=== PATIENT | female | born 2005 | race Two or more races ===

== ENCOUNTER 2023-05-14 16:42 | Outpatient (OUT) | payer OTHER, SELFPAY ==
[2023-05-16 05:07] LABS: Hepatitis B Surf Ab Quant 174.8 mIU/mL (Immunity>9.9)
== END 2023-05-14 16:43 | disposition home or self-care (01) ==
LOC: LAB 16:48
PROVIDERS: PCP Nurse Practitioner Family; Visit Provider Nurse Practitioner Family
DX: T14.8XXA Other injury of unspecified body region, initial encounter (principal); W50.3XXA Accidental bite by another person, initial encounter
CPT/HCPCS: 36415; 86317

== ENCOUNTER 2023-07-05 17:30 | Outpatient (OUT) | payer BC, SELFPAY ==
--- NOTE | 2023-07-05 | XR_ITS ---
[facility] [id number] Patient Name: JAYNE HUMPHRIES MRN: [id number] date: 2005 Sex: F Assigned Patient Location: [facility] Current Patient Location: Accession/Order Number: [id number] Exam Date: 07/05/2023 17:50 Report Date: 07/06/2023 06:59 At the request of: CHINO OTTO Procedure: XR thoracic spine 3V EXAMINATION: XR thoracic spine 3V, XR cervical spine 5V HISTORY: Thorasic pain M54.6 COMPARISON: No relevant comparison available. FINDINGS: BONES: Normal alignment of the cervical and thoracic vertebral bodies with no acute fracture or spondylolisthesis. DISC SPACES: Normal. No significant disc height narrowing, subluxation, or endplate abnormality. PARASPINOUS: Negative. No paraspinous abnormality is seen. OTHER: Negative. XR/XR thoracic spine 3V IMPRESSION: No acute radiographic abnormality Electronically authenticated by: ANTONIO ALCANTAR Date: 07/06/2023 06:59
--- NOTE | 2023-07-05 | XR_ITS ---
[facility] [id number] Patient Name: JAYNE HUMPHRIES MRN: [id number] date: 2005 Sex: F Assigned Patient Location: [facility] Current Patient Location: Accession/Order Number: [id number] Exam Date: 07/05/2023 17:50 Report Date: 07/06/2023 06:59 At the request of: CHINO OTTO Procedure: XR cervical spine 5V EXAMINATION: XR thoracic spine 3V, XR cervical spine 5V HISTORY: Thorasic pain M54.6 COMPARISON: No relevant comparison available. FINDINGS: BONES: Normal alignment of the cervical and thoracic vertebral bodies with no acute fracture or spondylolisthesis. DISC SPACES: Normal. No significant disc height narrowing, subluxation, or endplate abnormality. PARASPINOUS: Negative. No paraspinous abnormality is seen. OTHER: Negative. XR/XR cervical spine 5V IMPRESSION: No acute radiographic abnormality Electronically authenticated by: ANTONIO ALCANTAR Date: 07/06/2023 06:59
== END 2023-07-05 17:31 | disposition home or self-care (01) ==
LOC: RAD 17:32
PROVIDERS: PCP Nurse Practitioner Family; Visit Provider Nurse Practitioner Family
DX: M54.2 Cervicalgia (principal); M54.6 Pain in thoracic spine
CPT/HCPCS: 72050; 72072

== ENCOUNTER 2024-10-03 22:25 | Emergency (ER) | payer BC, SELFPAY ==
[2024-10-03] VITALS (10 sets, daily range): BP systolic 130; BP diastolic 89; PULSE 74–109; TEMP 36.8; O2SAT 99–100; BMI 25.4
--- OUTSIDE RECORDS SUMMARY | 2024-10-03 22:36 | XMS_ITS | CCD ---
Author Organization [facility] Care Team Providers Care Cardiovascular Technologist Name Role Phone Margo Jay Primary Care Physician [phone] CHU OMER Admitting Unavailable CHU OMER Attending Unavailable CHU OMER Consulting Unavailable OLDS, MARGO Admitting Unavailable OLDS, MARGO Attending Unavailable OLDS, MARGO Primary Care Unavailable OLDS, MARGO Consulting Unavailable MISC, DR KENDRICK Admitting Unavailable MISC, DR KENDRICK Attending Unavailable OLDS, MARGO Primary Care Unavailable MISC, DR KENDRICK Consulting Unavailable OLDS, MARGO Admitting Unavailable OLDS, MARGO Attending Unavailable OLDS, MARGO Primary Care Unavailable OLDS, MARGO Admitting Unavailable OLDS, MARGO Attending Unavailable OLDS, MARGO Primary Care Unavailable OLDS, MARGO Admitting Unavailable OLDS, MARGO Attending Unavailable OLDS, MARGO Primary Care Unavailable Haley Butcher Unavailable Antonina Wahl Unavailable Cele PETER Attending Unavailable Cele PETER Attending Unavailable Misty, Margo RAMIREZ Attending Unavailable Allergies Allergy Classification Reported Allergen(s) Allergy Type Date of Onset Reaction(s) Facility (1 source) No Known Medication Allergies; Translations: [No Known Medication Allergies] Propensity to adverse reactions (disorder) [facility] Repository Medications Current Medications Medication Drug Class(es) Dates Sig (Normalized) Sig (Original) cetirizine hydrochloride 10 mg oral tablet (6 sources) Histamine-1 Receptor Antagonist Start: 01-17-2022 End: 05-17-2022 take 1 tablet by mouth once daily cetirizine 10 mg Tab 10 mg = 1 tab(s), Oral, Daily, X 30 day(s), # 30 tab(s), Refills(s) 3, [id number], cm, 01/17/22 8:25:00 EST, Height/Length Dosing, 77, kg, 01/17/22 8:25:00 EST, Weight Dosing Start Date: 01/17/22 Stop Date: 05/17/22 Status: Ordered {21 (Ethinyl Estradiol 0.035 MG / norgestimate 0.25 MG Oral Tablet) / 7 (Inert Ingredients 1 MG Oral Tablet) } Pack [Sprintec 28 Day] (7 sources) Progestin, Estrogen Start: 03-21-2022 End: 11-28-2022 Sprintec oral tablet 1 tab(s), Oral, Daily for 84 day(s), 84 tab(s), Refill(s) 2, [id number] 175.2, cm, 03/21/22 10:06:00 EST, Height/Length Dosing, 75.4, kg, 03/21/22 10:06:00 EST, Weight Dosing Start Date: 03/21/22 Stop Date: 11/28/22 Status: Ordered Start: 10-17-2021 take 1 tablet by remington th once daily Adali 0.25mg-35mcg oral tablet Refill(s) 0, 28 EA, TAKE 1 TABLET BY MOUTH EVERY DAY Start Date: 10/17/21 Status: Ordered Start: 03-15-2021 Sprintec oral tablet 1 tab(s), Oral, Daily, 28 tab(s), Refill(s) 11, [id number] 176, cm, 03/15/21 9:01:00 EST, Height/Length Dosing, 76, kg, 03/15/21 9:01:00 EST, Weight Dosing Start Date: 03/15/21 Status: Ordered take 1 tablet by remington th every twenty-four hours Adali 0.25-35 MG-MCG 1 tablet Orally Once a day Active Flonase 0.05 mg/inh nasal spray (3 sources) Start: 01-17-2022 take 1 spray(s) nasal route twice daily Flonase 0.05 mg/inh nasal spray 1 spray(s), Nasal, BID, 16 gram, Refill(s) 2, each nostril, [facility] #[id number], 176, cm, 01/17/22 8:25:00 EST, Height/Length Dosing, 77, kg, 01/17/22 8:25:00 EST, Weight Dosing Start Date: 01/17/22 Status: Ordered fluticasone propionate 0.05 mg/actuat metered dose nasal spray (9 sources) Corticosteroid Start: 01-17-2022 take 1 spray(s) nasal route twice daily Flonase 0.05 mg/inh nasal spray 1 spray(s), Nasal, BID, 16 gram, Refill(s) 2, each nostril, [facility]/pharmacy #[id number], 176, cm, 01/17/22 8:25:00 EST, Height/Length Dosing, 77, kg, 01/17/22 8:25:00 EST, Weight Dosing Start Date: 01/17/22 Status: Ordered Start: 08-22-2021 fluticasone to pical 0.05% cream 1 melodie, Topical, BID, 30 gram, Refill(s) 0 Start Date: 08/22/21 Status: Ordered Start: 08-22-2021 fluticasone to pical 0.05% cream 1 melodie, Topical, BID, 30 gram, Refill(s) 0 Start Date: 08/22/21 Status: Ordered take 1 spray(s) nasa l route once daily as needed Fluticasone Propionate 50 MCG/ACT 1 spray in each nostril Nasally Once a day PRN Not-Taking Multivitamin preparation (2 sources) Start: 04-06-2022 multivitamin S ee Instructions, Refill(s) 0, Prophylaxis Start Date: 04/06/22 Status: Ordered Completed/Discontinued Medications Medication Drug Class(es) Dates Sig (Normalized) Sig (Original) methylPREDNISolone 4 mg tab dosepak (1 source) Start: 02-03-2022 methylPREDNISolone 4 mg tab dosepak 21 EA, TAKE 6 TABLETS ON DAY 1 DIRECTED ON PACKAGE AND DECREASE BY 1 TAB EACH DAY FOR A TOTAL OF 6 DAYS, Refills(s) 0 Start Date: 02/03/22 Status: Suspended Problems Active Problems Problem Classification Problem Date Documented Date Episodic/Chronic Deficiency and other anemia (2 sources) Anemia 03-22-2022 Episodic Esophageal disorders (6 sources) Gastroesophageal reflux disease without esophagitis 03-15-2021 Chronic Other ear and sense organ disorders (1 source) Impacted cerumen; Translations: [Impacted cerumen, unspecified ear] Onset: 01-17-2022 Episodic Other nervous system disorders (1 source) Chronic pain; Translations: [Other chronic pain] Onset: 01-17-2022 Chronic Other nervous system disorders (1 source) Other chronic pain; Translations: [OTHER CHRONIC PAIN] Onset: 03-17-2022 Chronic Other non-traumatic joint disorders (8 sources) Joint pain; Translations: [Pain in unspecified joint] Onset: 08-22-2021 Episodic Other non-traumatic joint disorders (4 sources) Hip pain 01-17-2022 Episodic Other non-traumatic joint disorders (1 source) Pain in unspecified knee; Translations: [PAIN IN UNSPECIFIED KNEE] Onset: 03-17-2022 Episodic Other non-traumatic joint disorders (4 sources) Pain in unspecified hip; Translations: [PAIN IN UNSPECIFIED HIP] Onset: 03-12-2022 Episodic Other nutritional; endocrine; and metabolic disorders (6 sources) Overweight in childhood 01-25-2021 Episodic Other skin disorders (8 sources) Eruption; Translations: [Rash and other nonspecific skin eruption] Onset: 08-22-2021 Episodic Other upper respiratory disease (1 source) Allergic rhinitis; Translations: [Allergic rhinitis, unspecified] Onset: 01-17-2022 Chronic Other upper respiratory disease (2 sources) Seasonal allergy; Translations: [Other seasonal allergic rhinitis] Chronic Residual codes; unclassified (6 sources) High risk sexual behavior of adolescence 03-15-2021 Episodic Sprains and strains (1 source) Strain of other muscles, fascia and tendons at shoulder and upper arm level, right arm, initial encounter Episodic Unclassified (4 sources) Pain of knee region 01-17-2022 Unclassified (2 sources) Patient encounter status 03-21-2022 Viral infection (6 sources) Viral disease 03-18-2020 Episodic Past or Other Problems Problem Classification Problem Date Documented Da te Episodic/Chronic Allergic reactions (12 sources) Urticaria; Translations: [Urticaria, unspecified] Onset: 08-22-2021 Episodic Other non-traumatic joint disorders (4 sources) Pain in left hip; Translations: [PAIN IN LEFT HIP] Onset: 11-21-2022 Episodic Other non-traumatic joint disorders (5 sources) Pain in unspecified joint; Translations: [PAIN IN UNSPECIFIED JOINT] Onset: 08-25-2021 Episodic Other upper respiratory disease (4 sources) Epistaxis; Translations: [EPISTAXIS] Onset: 02-03-2022 Episodic Results Test Name Value Interpretation Reference Range Facility Retail - Clinical Noteon Retail - Clinical Note [id number] Normal [facility] Quantiferon-TB Plus (Client Incubated)on 08-10-2022 Gamma interferon background IA Qn (Bld) 0.00 International_Unit/ mL Invalid Interpretation Code [facility] Comment on above: Performed By: #### 3 [id number] #### [facility] [address] [place] [address] M. tuberculosis stim IFN-g by CD4+ CD8+ T-cells Qn (Bld) 0.00 International_Unit/ mL Invalid Interpretation Code [facility] Comment on above: Performed By: #### 3 [id number] #### [facility] [address] [place] [address] M. tuberculosis stim IFN-g by CD4+ T-cells Qn (Bld) 0.00 International_Unit/ mL Invalid Interpretation Code [facility] Comment on above: Performed By: #### 3 [id number] #### [facility] [address] [place] [address] M. tuberculosis stim IFN-g Ql (Bld) [Interp] Negative Invalid Interpretation Code Negative [facility] Comment on above: Result Comment: No r esponse to M tuberculosis antigens detected. Infection with M tuberculosis is unlikely, but high risk individuals should be considered for additional testing (ATS/IDSA/CDC Clinical Practice Guidelines, 2017). The reference range is an Antigen minus Nil result of <0.35 IU/mL. The specimen received for QuantiFERON testing was incubated by the ordering institution. Specific procedures outlined in our Directory of Services and in the package insert for the QuantiFERON Gold (In Tube) test must be followed to enable for proper stimulation of cells for the production of interferon gamma. Chemiluminescence immunoassay methodology Performed at: [facility] [address] [id number] PhD Rica Thrasher Performed By: #### 3 [id number] #### [facility] [address] [place] [address] Mitogen stimulated gamma interferon Qn (Bld) >10.00 Invalid Interpretation Code [facility] Comment on above: Performed By: #### 3 [id number], [id number] #### [facility] [address] [place] [address] Service comment (Unsp spec) [Interp] Comment Invalid Interpretation Code [facility] Comment on above: Result Comment: Casimiro tiFERON-TB Gold Plus is a qualitative indirect test for M tuberculosis infection (including disease) and is intended for use in conjunction with risk assessment, radiography, and other medical and diagnostic evaluations. The QuantiFERON-TB Gold Plus result is determined by subtracting the Nil value from either TB antigen (Ag) value. The Mitogen tube serves as a control for the test. Performed By: #### 3 [id number] #### [facility] [address] [place] [address] Hep Bs Abon 08-09-2022 HBV surface Ab Ql (S) Non-Reactive Invalid Interpretation Code [facility] Comment on above: Result Comment: Non Reactive: Inconsistent with immunity, less than 10 mIU/mL Reactive: Consistent with immunity, greater than 9.9 mIU/mL Performed at: [facility] [place] [address] [place] [id number] PhD Rica Thrasher Performed By: #### 3 [id number] #### [facility] [address] [place] [address] Measles/Mumps/Rubella Immuni tyon 08-09-2022 MeV IgG IA Qn (S) 23.3 A unit/mL Invalid Interpretation Code Immune >16.4 [facility] Comment on above: Result Comment: Nega tive <13.5 Equivocal 13.5 - 16.4 Positive >16.4 Presence of antibodies to Rubeola is presumptive evidence of immunity except when acute infection is suspected. Performed By: #### 3 [id number], [id number] #### [facility] [address] [place] [address] MuV IgG IA Qn (S) 184.0 A unit/mL Invalid Interpretation Code Immune >10.9 [facility] Comment on above: Result Comment: Nega tive <9.0 Equivocal 9.0 - 10.9 Positive >10.9 A positive result generally indicates past exposure to Mumps virus or previous vaccination. Performed at: [facility] [address] [id number] PhD Rica Thrasher Performed By: #### 3 [id number] #### [facility] [address] [place] [address] Rubella virus IgG Qn (S) 6.82 [IU]/mL Invalid Interpretation Code Immune >0.99 [facility] Comment on above: Result Comment: Non- immune <0.90 Equivocal 0.90 - 0.99 Immune >0.99 Performed By: #### 3 [id number] #### [facility] [address] [place] [address] Varic IgGon 08-09-2022 VZV IgG IA Qn (S) 550 Invalid Interpretation Code Immune >165 [facility] Comment on above: Result Comment: Nega tive <135 Equivocal 135 - 165 Positive >165 A positive result generally indicates exposure to the pathogen or administration of specific immunoglobulins, but it is not indication of active infection or stage of disease. Performed at: [facility] [address] [id number] PhD Rica Thrasher Performed By: #### 3 [id number] #### [facility] [address] [place] [address] [place] 08-08-2022 Consent [id number]:[id number] Normal [facility] Registrationon 08-08-2022 Registration [id number]:[id number] Normal [facility] COAGULATIONOrdered By: Dariana Talbot on 04-06-2022 aPTT Coag (PPP) [Time] 29.6 s Normal 25.1 - 36.5 second(s) [facility] INR Coag (PPP) [Relative time] 1.0 {INR} Invalid Interpretation Code [facility] PT Coag (PPP) [Time] 11.0 s Normal 9.4 - 1 2.5 second(s) [facility] HEMATOLOGYOrdered By: SYSTEM SYSTEM on 04-06-2022 Basophils/100 WBC (Bld) 0.3 % Normal 0.0 - 2.0 % [facility] HemeAutoSS Basophils/Leukocytes Auto (Bld) [Pure # fraction] 0.0 E9/L Normal 0.0 - 0.2 E9/L [facility] Eosinophils/100 WBC (Bld) 2.3 % Normal 0.0 - 8.0 % [facility] Eosinophils/Leukocytes Auto (Bld) [Pure # fraction] 0.1 E9/L Normal 0.0 - 0.5 E9/L [facility] Lymphocytes/100 WBC (Bld) 41.5 % Normal 14.0 - 50.0 % [facility] Lymphocytes/Leukocytes Auto (Bld) [Pure # fraction] 2.5 E9/L Normal 1.0 - 4.0 E9/L [facility] Monocytes/100 WBC (Bld) 10.5 % Normal 4.0 - 14.0 % [facility] Monocytes/Leukocytes Auto (Bld) [Pure # fraction] 0.6 E9/L Normal 0.2 - 1.0 E9/L [facility] Neutrophils/100 WBC (Bld) 45.4 % Normal 36.0 - 75.0 % [facility] Neutrophils/Leukocytes Auto (Bld) [Pure # fraction] 2.7 E9/L Normal 2.0 - 7.5 E9/L [facility] HEMATOLOGYOrdered By: Rodríguez Mederos on 04-06-2022 Erythrocyte distribution width (RBC) [Ratio] 14.5 % High 10.9 - 14.2 % [facility] Hematocrit (Bld) [Volume fraction] 35.2 % Normal 34.0 - 46.0 % [facility] Hemoglobin (Bld) [Mass/Vol] 11.9 g/dL Low 12.0 - 16.0 gm/dL [facility] MCH (RBC) [Entitic mass] 29.3 pg Normal 27.0 - 34.0 pg [facility] MCHC (RBC) [Mass/Vol] 33.7 g/dL Normal 31.4 - 36.0 gm/dL [facility] MCV (RBC) [Entitic vol] 87.0 fL Normal 80.0 - 100.0 fL [facility] Platelet mean volume (Bld) [Entitic vol] 9.2 fL Normal 6.4 - 10.8 fL [facility] Platelets (Bld) [#/Vol] 223.0 E9/L Normal 150.0 - 500.0 E9/L [facility] RBC (Bld) [#/Vol] 4.0 E12/L Low 4.3 - 5.9 E12/L [facility] WBC corrected for nucl RBC Auto (Bld) [#/Vol] 6.0 E9/L Normal 4.0 - 11.0 E9/L [facility] CBC AUTO DIFFon 02-03-2022 BASO # 0.0 103/ul Normal 0.0-0.1 [facility] Comment on above: Performed By: #### C BC #### [facility] [address] [address] [address] Prakash Cardona Basophils/100 WBC (Bld) 0.4 % Normal 0.2-2.0 [facility] Comment on above: Performed By: #### C BC #### [facility] [address] [place] [address] Dr. Prakash Cardona EO # 0.3 103/ul Normal 0.0-0.7 [facility] Comment on above: Performed By: #### C BC #### [facility] [address] [place] [address] Dr. Prakash Cardona Eosinophils/100 WBC (Bld) 4.1 % Normal 0.9-7.0 [facility] Comment on above: Performed By: #### C BC #### [facility] [address] [place] [address] Dr. Prakash Cardona Erythrocyte distribution width (RBC) [Ratio] 14.1 % Normal 11.0-15.0 [facility] Comment on above: Performed By: #### C BC #### [facility] [address] [place] [address] Dr. Prakash Cardona Hematocrit (Bld) [Volume fraction] 35.2 % Critically low 36.0-48.0 [facility] Comment on above: Performed By: #### C BC #### [facility] [address] [place] [address] Dr. Prakash Cardona Hemoglobin (Bld) [Mass/Vol] 11.6 g/dL Critically low 12.0-16.0 [facility] Comment on above: Performed By: #### C BC #### [facility] [address] [place] [address] Dr. Prakash Cardona IG # 0.02 10e3/ul Normal 0.00-0.03 [facility] Comment on above: Performed By: #### C BC #### [facility] [address] [place] [address] Dr. Prakash Cardona IG % 0.3 % Normal 0.0-0.5 [facility] Comment on above: Performed By: #### C BC #### [facility] [address] [place] [address] Dr. Prakash Cardona LYMPH # 2.3 103/ul Normal 1.2-3.8 [facility] Comment on above: Performed By: #### C BC #### [facility] [address] [place] [address] Dr. Prakash Cardona Lymphocytes/100 WBC (Bld) 33.9 % Normal 20.5-60.0 [facility] Comment on above: Performed By: #### C BC #### [facility] [address] [place] [address] Dr. Prakash Cardona MANUAL DIFF REQ NO Normal [facility] Comment on above: Performed By: #### C BC #### [facility] [address] [place] [address] Dr. Prakash Cardona MCH (RBC) [Entitic mass] 28.7 pg Normal 26.7-34.0 [facility] Comment on above: Performed By: #### C BC #### [facility] [address] [place] [address] Dr. Prakash Cardona MCHC (RBC) [Mass/Vol] 33.0 g/dL Normal 29.9-35.2 [facility] Comment on above: Performed By: #### C BC #### [facility] [address] [place] [address] Dr. Prakash Cardona MCV (RBC) [Entitic vol] 87.1 fL Normal 81.0-99.0 [facility] Comment on above: Performed By: #### C BC #### [facility] [address] [place] [address] Dr. Prakash Cardona MONO # 0.6 103/ul Normal 0.3-0.8 [facility] Comment on above: Performed By: #### C BC #### [facility] [address] [place] [address] Dr. Prakash Cardona Monocytes/100 WBC (Bld) 8.2 % Normal 1.7-12.0 [facility] Comment on above: Performed By: #### C BC #### [facility] [address] [place] [address] Dr. Prakash Cardona NEUT # 3.6 103/ul Normal 1.4-6.5 [facility] Comment on above: Performed By: #### C BC #### [facility] [address] [place] [address] Dr. Prakash Cardona Neutrophils/100 WBC (Bld) 53.1 % Normal 43.0-75.0 [facility] Comment on above: Performed By: #### C BC #### [facility] [address] [place] [address] Dr. Prakash Cardona Platelet mean volume (Bld) [Entitic vol] 10.3 fL Normal 9.5-13.5 [facility] Comment on above: Performed By: #### C BC #### [facility] [address] [place] [address] Dr. Prakash Cardona PLT 233 103/ul Normal 150-450 [facility] Comment on above: Performed By: #### C BC #### [facility] [address] [place] [address] Dr. Prakash Cardona RBC 4.04 106/ul Critically low 4.20-5.40 [facility] Comment on above: Performed By: #### C BC #### [facility] [address] [place] [address] Dr. Prakash Cardona WBC 6.9 103/ul Normal 4.0-11.0 [facility] Comment on above: Performed By: #### C BC #### [facility] [address] [place] [address] Dr. Prakash Cardona LIVER PROFILEon 02-03-2022 Albumin [Mass/Vol] 3.3 g/dL Critically low 3.4-5.0 [facility] Comment on above: Performed By: #### L IVER #### [facility] [address] [place] [address] Dr. Prakash Cardona Albumin/Globulin [Mass ratio] 0.8 {ratio} Normal [facility] Comment on above: Performed By: #### L IVER #### [facility] [address] [place] [address] Dr. Prakash Cardona ALP [Catalytic activity/Vol] 81 U/L Normal 46-116 [facility] Comment on above: Performed By: #### L IVER #### [facility] [address] [place] [address] Dr. Prakash Cardona ALT [Catalytic activity/Vol] 16 U/L Normal 14-59 [facility] Comment on above: Performed By: #### L IVER #### [facility] [address] [place] [address] Dr. Prakash Cardona AST [Catalytic activity/Vol] 16 U/L Normal 15-37 [facility] Comment on above: Performed By: #### L IVER #### [facility] [address] [place] [address] Dr. Prakash Cardona BILI, CONJUGATED 0.1 mg/dL Normal 0.0-0.2 [facility] Comment on above: Performed By: #### L IVER #### [facility] [address] [place] [address] Dr. Prakash Cardona Bilirubin [Mass/Vol] 0.5 mg/dL Normal 0.2-1.0 [facility] Comment on above: Performed By: #### L IVER #### [facility] [address] [place] [address] Dr. Prakash Cardona Globulin (S) [Mass/Vol] 4.0 g/dL Normal [facility] Comment on above: Performed By: #### L IVER #### [facility] [address] [place] [address] Dr. Prakash Cardona Protein [Mass/Vol] 7.3 g/dL Normal 6.4-8.2 [facility] Comment on above: Performed By: #### L IVER #### [facility] [address] [place] [address] Dr. Prakash Cardona SLE PROFILE Aon 10-20-2021 Anti-DNA (DS) Ab Qn 4 IU/mL Normal 0-9 [facility] Comment on above: Result Comment: Nega tive <5 Equivocal 5 - 9 Positive >9 Performed By: #### S DANI SLEPB #### [facility] [address] [place] [address] Dr. Praksah Cardona Antichromatin Antibodies <0.2 Normal 0.0-0.9 [facility] Comment on above: Performed By: #### S DANI SLEPB #### [facility] [address] [address] [address] Prakash Cardona RA Latex Turbid. <10.0 Normal <14.0 [facility] Comment on above: Performed By: #### S DANI, SLEPB #### [facility] [address] [address] [address] Prakash Cardona [employer] Antibodies <0.2 Normal 0.0-0.[address] [facility] Comment on above: Performed By: #### S DANI, SLEPB #### [facility] [address] [address] [address] Prakash Cardona Sjogren's Anti-SS-A <0.2 Normal 0.0-0.9 [facility] Comment on above: Performed By: #### S DANI, SLEPB #### [facility] [address] [place] [address] Dr. Prakash Cardona Sjogrnorma's Anti-SS-B <0.2 Normal 0.0-0.9 [facility] Comment on above: Performed By: #### S DANI, SLEPB #### [facility] [address] [place] [address] Dr. Prakash Cardona Pruett Antibodies <0.2 Normal 0.0-0.9 [facility] Comment on above: Performed By: #### S DANI, SLEPB #### [facility] [address] [address] [address] Prakash Cardona SLE PROFILE Bon 10-20-2021 LEOPOLDO Direct Negative Normal Negative [facility] [facility] Comment on above: Performed By: #### S DANI, SLEPB #### [facility] [address] [address] [address] Prakash Cardona Complement C3, Serum 134 mg/dL Normal 82-167 [facility] Comment on above: Performed By: #### S DANI, SLEPB #### [facility] [address] [address] [address] Prakash Cardona Complement C4, Serum 11 mg/dL Normal 10-34 [facility] Comment on above: Performed By: #### S DANI, SLEPB #### [facility] [address] [address] [address] Prakash Cardona CBC AUTO DIFFon 08-23-2021 BASO # 0.0 103/ul Normal 0.0-0.1 [facility] Comment on above: Performed By: #### C BC #### [facility] [address] [address] [address] Prakash Cardona Basophils/100 WBC (Bld) 0.5 % Normal 0.2-2.0 [facility] Comment on above: Performed By: #### C BC #### [facility] [address] [address] [address] Prakash Cardona EO # 0.1 103/ul Normal 0.0-0.7 [facility] Comment on above: Performed By: #### C BC #### [facility] [address] [address] [address] Prakash Cardona Eosinophils/100 WBC (Bld) 2.3 % Normal 0.9-7.0 [facility] Comment on above: Performed By: #### C BC #### [facility] [address] [address] [address] Prakash Cardona Erythrocyte distribution width (RBC) [Ratio] 14.5 % Normal 11.0-15.0 [facility] Comment on above: Performed By: #### C BC #### [facility] [address] [address] [address] Prakash Cardona Hematocrit (Bld) [Volume fraction] 36.2 % Normal 36.0-48.0 [facility] Comment on above: Performed By: #### C BC #### [facility] [address] [address] [address] Prakash Cardona Hemoglobin (Bld) [Mass/Vol] 11.6 g/dL Critically low 12.0-16.0 [facility] Comment on above: Performed By: #### C BC #### [facility] [address] [address] [address] Prakash Cardona IG # 0.01 10e3/ul Normal 0.00-0.03 [facility] Comment on above: Performed By: #### C BC #### [facility] [address] [place] [address] Dr. Prakash Cardona IG % 0.2 % Normal 0.0-0.5 [facility] Comment on above: Performed By: #### C BC #### [facility] [address] [place] [address] Dr. Prakash Cardona LYMPH # 2.3 103/ul Normal 1.2-3.8 [facility] Comment on above: Performed By: #### C BC #### [facility] [address] [place] [address] Dr. Prakash Cardona Lymphocytes/100 WBC (Bld) 37.7 % Normal 20.5-60.0 [facility] Comment on above: Performed By: #### C BC #### [facility] [address] [place] [address] Dr. Prakash Cardona MANUAL DIFF REQ NO Normal [facility] Comment on above: Performed By: #### C BC #### [facility] [address] [place] [address] Dr. Prakash Cardona MCH (RBC) [Entitic mass] 28.9 pg Normal 26.7-34.0 [facility] Comment on above: Performed By: #### C BC #### [facility] [address] [place] [address] Dr. Prakash Cardona MCHC (RBC) [Mass/Vol] 32.0 g/dL Normal 29.9-35.2 [facility] Comment on above: Performed By: #### C BC #### [facility] [address] [place] [address] Dr. Prakash Cardona MCV (RBC) [Entitic vol] 90.0 fL Normal 79.1-95.6 [facility] Comment on above: Performed By: #### C BC #### [facility] [address] [place] [address] Dr. Prakash Cardona MONO # 0.5 103/ul Normal 0.3-0.8 [facility] Comment on above: Performed By: #### C BC #### [facility] [address] [place] [address] Dr. Prakash Cardona Monocytes/100 WBC (Bld) 7.8 % Normal 1.7-12.0 [facility] Comment on above: Performed By: #### C BC #### [facility] [address] [place] [address] Dr. Prakash Cardona NEUT # 3.2 103/ul Normal 1.4-6.5 [facility] Comment on above: Performed By: #### C BC #### [facility] [address] [place] [address] Dr. Prakash Cardona Neutrophils/100 WBC (Bld) 51.5 % Normal 43.0-75.0 [facility] Comment on above: Performed By: #### C BC #### [facility] [address] [place] [address] Dr. Prakash Cardona Platelet mean volume (Bld) [Entitic vol] 10.2 fL Normal 9.5-13.5 [facility] Comment on above: Performed By: #### C BC #### [facility] [address] [place] [address] Dr. Prakash Cardona PLT 241 103/ul Normal 150-450 [facility] Comment on above: Performed By: #### C BC #### [facility] [address] [place] [address] Dr. Prakash Cardona RBC 4.02 106/ul Normal 3.40-5.30 [facility] Comment on above: Performed By: #### C BC #### [facility] [address] [place] [address] Dr. Prakash Cardona WBC 6.2 103/ul Normal 4.0-11.0 [facility] Comment on above: Performed By: #### C BC #### [facility] [address] [place] [address] Dr. Prakash Cardona CRPon 08-23-2021 CRP [Mass/Vol] mg/L Normal <=1.[address] [facility] Comment on above: Performed By: #### C RP #### [facility] [address], [place] [address] Dr. Prakash Cardona SED RATE [facility] 2021 SED RATE 9 mm/hr Normal <=20 [facility] Comment on above: Performed By: #### S EDR #### [facility] [address] [address] [address] Prakash Cardona Vaginitis Plus (VG+)on 09-09 Atopobium Vaginae Low - 0 Normal . [facility] Comment on above: Order Comment: Reaso n for Exam High risk heterosexual behavior Specimen Comment: Test(s) 414295-Eplyvpb albicans, MARICARMEN; 756491- Specimen Comment: Alison glabrata, MARICARMEN Specimen Comment: was developed and its performance characteristics Specimen Comment: determined by [facility]. It has not been cleared or approved Specimen Comment: by the Food and Drug Administration. Performed By: #### V AGINITIS+ #### [facility] , BVAB2 Low - 0 Normal . [facility] Comment on above: Order Comment: Reaso n for Exam High risk heterosexual behavior Specimen Comment: Test(s) 858792-Dtguhtm albicans, MARICARMEN; 260779- Specimen Comment: Alison glabrata, MARICARMEN Specimen Comment: was developed and its performance characteristics Specimen Comment: determined by [facility]. It has not been cleared or approved Specimen Comment: by the Food and Drug Administration. Performed By: #### V AGINITIS+ #### [facility] , Alison Albicans, MARICARMEN Negative Normal Negative [facility] Comment on above: Order Comment: Reaso n for Exam High risk heterosexual behavior Specimen Comment: Test(s) 183944-Sdiqhie albicans, MARICARMEN; 037519- Specimen Comment: Alison glabrata, MARICARMEN Specimen Comment: was developed and its performance characteristics Specimen Comment: determined by [facility]. It has not been cleared or approved Specimen Comment: by the Food and Drug Administration. Performed By: #### V AGINITIS+ #### [facility] , Alison Glabrata, MARICARMEN Negative Normal Negative [facility] Comment on above: Order Comment: Reaso n for Exam High risk heterosexual behavior Specimen Comment: Test(s) 128826-Camanka albicans, MARICARMEN; 036618- Specimen Comment: Alison glabrata, MARICARMEN Specimen Comment: was developed and its performance characteristics Specimen Comment: determined by [facility]. It has not been cleared or approved Specimen Comment: by the Food and Drug Administration. Result Comment: PERF ORMED BY: [facility] [address] PATHOLOGIST ASSOCIATE DIRECTOR [employer] IRISH PERDOMO M.D. Performed By: #### V AGINITIS+ #### [facility] , Chlamydia Trachomotis, MARICARMEN Negative Normal Negative [facility] Comment on above: Order Comment: Reaso n for Exam High risk heterosexual behavior Specimen Comment: Test(s) 393708-Ykjfmmf albicans, MARICARMEN; 637678- Specimen Comment: Alison glabrata, MARICARMEN Specimen Comment: was developed and its performance characteristics Specimen Comment: determined by [facility]. It has not been cleared or approved Specimen Comment: by the Food and Drug Administration. Performed By: #### V AGINITIS+ #### [facility] , Megasphaera Low - 0 Normal . [facility] Comment on above: Order Comment: Reaso n for Exam High risk heterosexual behavior Specimen Comment: Test(s) 880587-Fndohko albicans, MARICARMEN; 457147- Specimen Comment: Alison glabrata, MARICARMEN Specimen Comment: was developed and its performance characteristics Specimen Comment: determined by [facility]. It has not been cleared or approved Specimen Comment: by the Food and Drug Administration. Result Comment: Calc ulate total score by adding the 3 individual bacterial vaginosis (BV) marker scores together. Total score is interpreted as follows: Total score 0-1: Indicates the absence of BV. Total score 2: Indeterminate for BV. Additional clinical data should be evaluated to establish a diagnosis. Total score 3-6: Indicates the presence of BV. This test was developed and its performance characteristics determined by [facility]. It has not been cleared or approved by the Food and Drug Administration. Performed By: #### V AGINITIS+ #### [facility] , Neisseria Gonorrhoeae, MARICARMEN Negative Normal Negative [facility] Comment on above: Order Comment: Reaso n for Exam High risk heterosexual behavior Specimen Comment: Test(s) 503769-Lehrglp albicans, MARICARMEN; 108650- Specimen Comment: Alison glabrata, MARICARMEN Specimen Comment: was developed and its performance characteristics Specimen Comment: determined by [facility]. It has not been cleared or approved Specimen Comment: by the Food and Drug Administration. Result Comment: Perf ormed at: - [facility] [address] [id number] [place] Cutter: Lisbeth Vasquez MD, Phone: [phone] Performed By: #### V AGINITIS+ #### [facility] , Tric Vag MARICARMEN Negative Normal Negative [facility] Comment on above: Order Comment: Reaso n for Exam High risk heterosexual behavior Specimen Comment: Test(s) 397890-Sjivskn albicans, MARICARMEN; 479355- Specimen Comment: Alison glabrata, MARICARMEN Specimen Comment: was developed and its performance characteristics Specimen Comment: determined by [facility]. It has not been cleared or approved Specimen Comment: by the Food and Drug Administration. Performed By: #### V AGINITIS+ #### [facility] , Vital Signs Date Time Vital Sign Value Performing Clinician Facility 11-25-2022 14:25-0400 Body height 173.99 cm Antonina Reamond [facility] Other 11-25-2022 14:25-0400 Body mass index (BMI) [Ratio] 26.31 kg/m2 Antonina Reamond [facility] Other 11-25-2022 14:25-0400 Body temperature 98.8 [degF] Antonina Reamond Other [facility] Other 11-25-2022 14:25-0400 Body weight 79.65 kg Antonina Reamond Other [facility] Other 11-25-2022 14:25-0400 Respiratory rate 16 /min Antonina Reamond Other [facility] Other 11-25-2022 14:25-0400 SaO2% (BldA) [Mass fraction] 98 % Antonina Reamond Other [facility] Other 08-17-2022 14:45-0400 Body height 173.99 cm [facility] Other [facility] Other 08-17-2022 14:45-0400 Body mass index (BMI) [Ratio] 26.82 kg/m2 Haley Easterwood Other [facility] Other 08-17-2022 14:45-0400 Body temperature 97.4 [degF] [facility] Other [facility] Other 08-17-2022 14:45-0400 Body weight 81.19 kg [facility] Other [facility] Other 08-17-2022 14:45-0400 Diastolic blood pressure 68 mm[Hg] Haley Easterwood Other [facility] Other 08-17-2022 14:45-0400 Respiratory rate 20 /min Haley Easterwood Other [facility] Other 08-17-2022 14:45-0400 SaO2% (BldA) [Mass fraction] 99 % Haley Easterwood Other [facility] Other 08-17-2022 14:45-0400 Systolic blood pressure 102 mm[Hg] Haley Easterwood Other [facility] Other 04-06-2022 14:44-0500 Diastolic blood pressure 66 mm[Hg] Matilda Leonelgely [facility] 04-06-2022 14:44-0500 Heart rate 90 /min Matilda Timmis [facility] 04-06-2022 14:44-0500 Mean blood pressure 81 mm[Hg] Matilda Timmis [facility] 04-06-2022 14:44-0500 Systolic blood pressure 111 mm[Hg] Matilda Timmis [facility] 04-06-2022 14:44-0500 Heart rate 81 /min Matilda Timmis [facility] 04-06-2022 14:44-0500 SaO2% (BldA) [Mass fraction] 99 % Matilda Timmis [facility] 04-06-2022 14:43-0500 Diastolic blood pressure 66 mm[Hg] Matilda Timmis [facility] 04-06-2022 14:43-0500 Mean blood pressure 78 mm[Hg] Matilda Timmis [facility] 04-06-2022 14:43-0500 Systolic blood pressure 101 mm[Hg] Matilda Timmis [facility] 04-06-2022 14:32-0500 bodymassindex 0.97 Matilda Timmis [facility] Comment on above: Result Comment: ^~:!ZScore [facility] 04-06-2022 14:32-0500 Height/Length Percentile 91.38 Matilda Timmis [facility] Comment on above: Result Comment: ^~:!Percentile Source [facility] 04-06-2022 14:32-0500 Height/Length Z-Score 1.36 Matilda Timmis [facility] Comment on above: Result Comment: ^~:!ZScore [facility] 04-06-2022 14:32-0500 weight 1.38 Matilda Timmis [facility] Comment on above: Result Comment: ^~:!ZScore [facility] 04-06-2022 14:32-0500 Weight Percentile 91.62 % Matilda Oneal [facility] Comment on above: Result Comment: ^~:!Percentile Source [facility] 02-03-2022 10:51-0500 Blood Pressure Location Cele Garcia [facility] [place] 02-03-2022 10:51-0500 Body temperature 97.88 [degF] Cele Garcia [facility] 02-03-2022 10:51-0500 bodymassindex 0.98 Cele Garcia [facility] Comment on above: Result Comment: ^~:!ZScore [facility] 02-03-2022 10:51-0500 Diastolic blood pressure 70 mm[Hg] Cele Garcia [facility] 02-03-2022 10:51-0500 Heart rate 80 /min Cele Garcia [facility] [place] 02-03-2022 10:51-0500 Height/Length Percentile 96.66 % Cele Garcia [facility] Comment on above: Result Comment: ^~:!Percentile Source -[facility] 02-03-2022 10:51-0500 Height/Length Z-Score 1.83 Cele Garcia [facility] [place] Comment on above: Result Comment: ^~:!ZScore [facility] 02-03-2022 10:51-0500 Respiratory rate 18 /min Cele Garcia [facility] [place] 02-03-2022 10:51-0500 Systolic blood pressure 120 mm[Hg] Cele Garcia [facility] [place] 02-03-2022 10:51-0500 weight 1.52 Cele Garcia [facility] [place] Comment on above: Result Comment: ^~:!ZScore Source [facility] 02-03-2022 10:51-0500 Weight Percentile 93.53 % Cele Garcia [facility] [place] Comment on above: Result Comment: ^~:!Percentile Source -[facility] 01-17-2022 08:20-0500 Body temperature 98.42 [degF] Margo Jay [facility] 01-17-2022 08:20-0500 Diastolic blood pressure 60 mm[Hg] Margo Miles [facility] [place] 01-17-2022 08:20-0500 Heart rate 76 /min Margo Miles [facility] [place] 01-17-2022 08:20-0500 Respiratory rate 20 /min Margo Miles [facility] 01-17-2022 08:20-0500 Systolic blood pressure 90 mm[Hg] Margo Miles [facility] [place] 09-05-2021 08:19-0400 Blood Pressure Location Nell LAURENT [facility] [place] 09-05-2021 08:19-0400 Body temperature 97.52 [degF] Nell LAURENT [facility] 09-05-2021 08:19-0400 Diastolic blood pressure 56 mm[Hg] Nell LAURENT [facility] [place] 09-05-2021 08:19-0400 Heart rate 76 /min Nell LAURENT [facility] [place] 09-05-2021 08:19-0400 Respiratory rate 16 /min Nell CHAPMANTER [facility] 09-05-2021 08:19-0400 Systolic blood pressure 118 mm[Hg] Nell CHAPMANTER [facility] 08-22-2021 07:52-0400 Blood Pressure Location Chu WALLACEIN [facility] 08-22-2021 07:52-0400 Body temperature 97.88 [degF] Chu WALLACEIN [facility] 08-22-2021 07:52-0400 Diastolic blood pressure 68 mm[Hg] Chu WALLACEIN [facility] 08-22-2021 07:52-0400 Heart rate 78 /min Chu ACOSTARAIN [facility] 08-22-2021 07:52-0400 Respiratory rate 18 /min Chu ACOSTARAIN [facility] 08-22-2021 07:52-0400 Systolic blood pressure 122 mm[Hg] Chu ACOSTARAIN [facility] Encounters Encounter Date Encounter Type Care Provider Facility Start: 11-25-2022 End: 11-25-2022 ambulatory Antonina Maryuri [facility] Other Start: 11-25-2022 Office outpatient vi sit 15 minutes Antonina Wahl [facility] [place] Start: 08-17-2022 End: 08-17-2022 [facility] Start: 08-17-2022 Encounter for genera l adult medical examination without abnormal [facility] [place] Start: 08-17-2022 Initial preventive medicine new pt age 18-39yrs [facility] [place] Start: 08-08-2022 End: 08-09-2022 ambulatory Cele PETER Facility:[facility] Start: 08-08-2022 End: 08-09-2022 ambulatory Cele Kelly ROME Facility:[facility] Start: 07-27-2022 End: 07-28-2022 ambulatory Margo Jay Facility:[facility] Start: 04-06-2022 End: 04-06-2022 Patient encounter procedure Matilda Rao Jm [facility] Start: 03-30-2022 ambulatory MARGO MISTY Facility : Start: 03-24-2022 End: 04-14-2022 Pre-admission assessment Matilda Oneal [facility] Start: 03-12-2022 End: 03-15-2022 ambulatory MARGO OLDS Facility:[facility] Start: 02-03-2022 End: 02-04-[address] DOCTOR SEWELL Facility:[facility] Start: 02-03-2022 End: 02-03-2022 Patient encounter procedure Cele Ortega Garcia [facility] Start: 01-30-2022 End: 03-11-2022 ambulatory MARGO JAY Facility:[facility] Start: 01-17-2022 End: 01-17-2022 Patient encounter procedure Margo Jay [facility] [place] Start: 10-18-2021 End: 10-19-2021 ambulatory MARGO JAY Facility:[facility] Start: 09-05-2021 End: 09-05-2021 Patient encounter procedure Nell Yamilet LAURENT [facility] Start: 08-23-2021 End: 08-24-2021 ambulatory CHU OMER Facility:[facility] Start: 08-22-2021 End: 08-22-2021 Patient encounter procedure Chu OMER [facility] Procedures Date Procedure Procedure Detail Performing Clinician neck mass removal Chu BERTRAND Immunizations Immunization Date Immunization Notes Care Provider Ana dumont 03-21-2022 influenza, injectabl e, quadrivalent, preservative free Matildajusto Oneal [facility] 01-09-2022 influenza, injectabl e, quadrivalent, contains preservative Haley Butcher Other [facility] Other 01-25-2021 meningococcal B vaccine, recombinant, OMV, adjuvanted Chu OMER [facility] [place] 01-25-2021 meningococcal oligosaccharide (groups A, C, Y and W-135) diphtheria toxoid conjugate vaccine (MCV4O) Chu OMER [facility] 09-30-2020 SARS-CoV-2 (COVID-19 ) mRNA BNT-162b2 anastacia LAURENT [facility] Comment on above: Result Comment: 2021: TPVAL 09-09-2020 SARS-CoV-2 (COVID-19 ) mRNA BNT-162b2 vax Nell LAURENT [facility] Comment on above: Result Comment: 2021: TPVAL 12-13-2016 influenza virus vaccine, unspecified formulation Chu OMER [facility] [place] 09-29-2016 diphtheria, tetanus toxoids and acellular pertussis vaccine Chu OMER [facility] 09-29-2016 meningococcal ACWY vaccine, unspecified formulation Chu OMER [facility] 09-29-2016 tetanus and diphther ia toxoids, adsorbed, preservative free, for adult use (2 Lf of tetanus toxoid and 2 Lf of diphtheria toxoid) Chu OMER [facility] Comment on above: Result Comment: syst em error 09-29-2016 tetanus toxoid, redu héctor diphtheria toxoid, and acellular pertussis vaccine, adsorbed Nell LAURENT [facility] 12-31-2015 influenza virus vaccine, unspecified formulation Chu OMER [facility] 02-01-2015 influenza virus vaccine, unspecified formulation Chu ACOSTARAIN [facility] 12-25-2013 influenza virus vaccine, unspecified formulation Chu ACOSTARAIN [facility] 01-04-2010 influenza virus vaccine, unspecified formulation Chu WALLACEIN [facility] 05-25-2009 diphtheria, tetanus toxoids and acellular pertussis vaccine Chu ACOSTARAIN [facility] 05-25-2009 measles, mumps and rubella virus vaccine Chu WALLACEIN [facility] 05-25-2009 poliovirus vaccine, unspecified formulation Chumayur WALLACEIN [facility] [place] 05-25-2009 tetanus toxoid, redu héctor diphtheria toxoid, and acellular pertussis vaccine, adsorbed Chumayur OMER [facility] Comment on above: Result Comment: syst em error 05-25-2009 varicella virus vaccine Ash juana ACOSTARAIN [facility] 02-04-2008 influenza virus vaccine, unspecified formulation Chu ACOSTARAIN [facility] 02-26-2007 influenza virus vaccine, unspecified formulation Chumayur ACOSTARAIN [facility] 01-29-2007 influenza virus vaccine, unspecified formulation Chu OMER [facility] 01-15-2007 diphtheria, tetanus toxoids and acellular pertussis vaccine Chu OMER [facility] 01-15-2007 tetanus toxoid, redu héctor diphtheria toxoid, and acellular pertussis vaccine, adsorbed Chu OMER [facility] Comment on above: Result Comment: syst em error 09-27-2005 diphtheria, tetanus toxoids and acellular pertussis vaccine Chu OMER [facility] 09-27-2005 pneumococcal conjuga te vaccine, 13 valent Chu OMER [facility] 09-27-2005 poliovirus vaccine, unspecified formulation Chu OMER [facility] [facility] 09-27-2005 tetanus toxoid, redu héctor diphtheria toxoid, and acellular pertussis vaccine, adsorbed Chu OMER [facility] Comment on above: Result Comment: syst em error 06-28-2005 diphtheria, tetanus toxoids and acellular pertussis vaccine Chu OMER [facility] 06-28-2005 haemophilus influenz ae type b vaccine, HbOC conjugate Chu EndoseeJERZY [facility] [place] 06-28-2005 hepatitis B vaccine, adult dosage Chu OMER [facility] 06-28-2005 measles, mumps and rubella virus vaccine Chu OMER [facility] 06-28-2005 pneumococcal conjuga te vaccine, 13 valent Chu OMER [facility] [place] 06-28-2005 poliovirus vaccine, unspecified formulation Chu OMER [facility] 06-28-2005 tetanus toxoid, redu héctor diphtheria toxoid, and acellular pertussis vaccine, adsorbed Chu OMER [facility] [place] Comment on above: Result Comment: syst em error 06-28-2005 varicella virus vaccine Satnma OMER [facility] 01-27-2004 DTaP-hepatitis B and poliovirus vaccine Nell LAURENT [facility] 01-27-2004 haemophilus influenz ae type b vaccine, HbOC conjugate Chu OMER [facility] [place] 01-27-2004 hepatitis B vaccine, adult dosage Chu OMER [facility] 01-27-2004 pneumococcal conjuga te vaccine, 13 valent Chu OMER [facility] [place] 01-27-2004 poliovirus vaccine, unspecified formulation Chu OMER [facility] [place] 01-27-2004 tetanus toxoid, redu héctor diphtheria toxoid, and acellular pertussis vaccine, adsorbed Chu OMER [facility] [place] Comment on above: Result Comment: syst em error 2003 hepatitis B vaccine, adult dosage Chu OMER [facility] [place] NEGATED: Highlighted row has not occurred!02-03-2022 influenza virus vaccine, unspecified formulation Cele Garcia [facility] [place] Payers Date Payer Category Payer Unknown [id number] 2.16.84 [id number] 2003 Unknown [id number] 2.16.8 [id number] 2003 Unknown [id number] 2.16.8 [id number] 1976 Unknown [id number] 2.16.84 [id number] 1976 Unknown [id number] 2.16.84 [id number] 1976 Unknown [id number] 2.16.84 [id number] 1976 Unknown [id number] 2.16.84 [id number] 1976 Unknown [id number] 2.16.84 [id number] 1959 Self-pay 1961 Unknown [id number] 1959 Unknown [id number] Medicaid [id number] Social History Date Type Detail Facility Tobacco smoking status No Smoking Status Entered [facility] Sex Assigned At Female [facility] [place] Tobacco smoking status No Smoking Status Entered [facility] Functional Status Date Assessment Result Facility 04-06-2022 Functional Status No [facility] 02-03-2022 Functional Status N/A [facility] 01-17-2022 Functional Status N/A [facility] [place] 09-05-2021 Functional Status N/A [facility] 08-22-2021 Functional Status N/A [facility] Clinical Notes 08-19-2021 to 11-25-2022 Note Date & Type Note Facility 11-25-2022 Evaluation note Encounter Date Diagnosis Assessment Notes Nov, Strain of right trapezius muscle, initial encounter (ICD-10 - S46.811A) Drink plenty fluids, get plenty of rest. Take ibuprofen, 600 mg 2-3 times a day with food for the next week. Use IcyHot to the area for comfort. Consider getting a deep tissue massage. Follow-up with your family doctor if no improvement in 5 to 7 days [facility] Other 06-08-2023 Evaluation note* Encounter Date Diagnosis Assessment Notes Treatment Notes Treatment Clinical Notes Aug, Well adult exam (ICD-10 - Z00.00) We have discussed the necessity of following up with PCP regularly as well as specialists, as needed. Discussed F/U with dentistry and optometry at least yearly. Discussed all preventative measures/ cancer screenings as applicable to this patient. Emphasized the importance of a reduced fat, low carb diet to promote heart health and controlled blood sugars. Reviewed social history and ensured patient is safe within the home today. Pt denies any abuse of alcohol, nicotine, caffeine or recreational drugs. I have ensured patient is of stable mental and physical health today. We have discussed appropriate F/U schedule as well as blood work and vaccinations that apply. All questions answered and patient is sent home pleased, without concerns. Additional education provided on ADHD/autism screening. We did look into her healthcare provider office further. It appears they do have psychiatry and can do the evaluation for her as well. Nothing further needed from a primary care standpoint today. Aug, Other *Progress note was completed with the assistance of voice recognition software for dictation purposes. Please excuse any grammatical errors that were not corrected during review process. [facility] Other 11-01-2022 Hospital Discharge instructions Follow Up Care 01/10/2022 11:45:32 With:Margo Jay MD Address: When: Unknown Comments:f/up in 2 months for recheck joint pain, please make at least 20 minutes [facility] [place] 08-26-2022 Reason for referral (narrative) , Recurrent heavy posterior epistaxis started a few months ago Referred by: Radha MORRIS, Cele Ortega [facility] [place] 06-13-2022 Hospital Discharge instructions Follow Up Care 08/22/2021 08:59:15 With:[facility] Address: When:Within 1 Month(s) Comments:For a recheck of joint pain [facility] 06-10-2022 Hospital Discharge instructions Follow Up Care 08/19/2021 13:32:27 With:Margo Jay MD Address: When:1 to 2 weeks Comments:recheck rash [facility] Evaluation + Plan note Future Appointments Appointment Date:09/05/2021 08:00:00 AM Scheduled Provider:Nell CUELLAR [facility]eds OV 10 Diagnostic Tests Pending * Sedimentation Rate Automated 08/22/21 * C-Reactive Protein 08/22/21 * CBC w/ Auto Diff 08/22/21 [facility] [place] Evaluation + Plan note Future Appointments Appointment Date:03/28/2022 08:20:00 AM Scheduled Provider:Margo Jay MD Location:[facility] Appointment Type:Peds OV 20 [facility] Evaluation + Plan note Future Appointments Appointment Date:03/28/2022 08:20:00 AM Scheduled Provider:Margo Jay MD Location:[facility] Appointment Type:Peds OV 20 Diagnostic Tests Pending * CBC w/ Auto Diff 02/03/22 * Hepatic Function Panel 02/03/22 [facility] [place] Evaluation + Plan note Future Appointments Appointment Date:04/13/2022 08:00:00 AM Scheduled Provider: Location:[facility] N[facility]ative - Reported* Type Description Date Medical History Anxiety Medical History Depression Medical History PTSD Medical History Seasonal allergies Medical History Seasonal allergy Surgical History Mass on neck removed from cat s cratch fever 2012 Hospitalization History See surgical hx [facility] [employer] Other Hospital course Narrative No data available for this section [facility] [place] Hospital Discharge instructions No data available for this section [facility] progress note No data available for this section [facility] reason for visit NarrativeNew patient, EST Care, Previous PCP [facility], Requests ADHD evaluation and autism screening, [facility] [employer] Other Summary Purpose Family History No Family History Records FoundNo Family History Records FoundNo Family History Records Found Advance Directives No Advanced Directives Records FoundNo Advanced Directives Records FoundNo Advanced Directives Records Found Additional Source Comments INFORMATION SOURCE (unrecogn ized section and content) DATE CREATED AUTHOR 04/03/2021 [facility] DATE CREATED AUTHOR AUTHOR'S ORGANIZ ATION 05/25/2022 [facility] DATE CREATED AUTHOR AUTHOR'S ORGANIZ ATION 07/04/2023 [facility] Care Team (unrecognized sect ion and content) Personnel Name: Margo Jay MD Address: [address] [place] [address], [facility], [address] Personnel Name: Margo Jay MD Address: [facility] [address], [facility], [address] Personnel Name: Margo Jay MD Address: Address: [address] [place] [address], [facility], [address] Personnel Name: Margo Jay MD Address: Address: [address] [place] [address], [facility], [address] Personnel Name: Margo Jay MD Address: Address: [address] [place] [address] Personnel Name: Margo Jay MD Address: Address: [address] [place] [address], [facility], [address] REASON FOR VISIT (unrecogniz ed section and content) RIGHT SHOULDER PAIN, HELPED MOVED FAMILY AND NOW IT IS WORSE FOR RECORDS PERTAINING TO PATIENTS WHO ARE OR HAVE BEEN ENROLLED IN A CHEMICAL DEPENDENCY/SUBSTANCEABUSE PROGRAM, SOME INFORMATION MAY BE OMITTED. This clinical summary was aggregated from multiple sources. Caution should be exercised in using it in the provision of clinical care. This summary normalizes information from multiple sources, and as a consequence, information in this document may materially change the coding, format and clinical context of patient data. In addition, data may be omitted in some cases. CLINICAL DECISIONS SHOULD BE BASED ON THE PRIMARY CLINICAL RECORDS. [employer] provides no warranty or guarantee of the accuracy or completeness of information in this document.
--- NOTE | 2024-10-03 22:55 | ED.GENADUL1 ---
HPI HPI - General Adult General Chief complaint: Chest Pain Stated complaint: DIZZY, TIGHTNESS IN CHEST Time Seen by Provider: 10/03/24 22:49 Source: patient Mode of arrival: walk-in History of Present Illness HPI narrative: nausea after eating during this week. Occ episodes of sensation of heart racing. Working out tonight. Now has chest tightness sensation for past hour. No dyspnea or lightheadedness. No associated abdominal pain. Did have GERD in high school Related Data Home Medications ?Medication ?Instructions ?Recorded ?Confirmed No Known Home Medications 10/03/24 10/03/24 Allergies Allergy/AdvReac Type Severity Reaction Status Date / Time No Known Drug Allergies Allergy Verified 10/03/24 22:35 Review of Systems ROS Status of ROS 10 or more systems reviewed and unremarkable except as noted in history and below PFSH PFSH Social History Little interest or pleasure in doing things: not at all Feeling down, depressed, or hopeless: not at all Exam Constitutional Vital Signs, click to edit/add: Last Vital Signs Temp 98.3 F 10/03/24 22:29 Pulse 88 10/03/24 22:29 Resp 14 10/03/24 22:29 BP 130/89 10/03/24 22:29 Pulse Ox 100 10/03/24 22:29 O2 Del Method Room Air 10/03/24 22:29 Common normals: no apparent distress, average body habitus, oriented x3, no limitations, healthy appearing, alert and well nourished [facility] Common normals: normocephalic and head/scalp atraumatic Eye Common normals: PERRL and EOMs intact bilaterally Respiratory Common normals: normal respiratory effort, no retractions, no use of accessory muscles and clear to auscultation bilaterally Cardio Common normals: regular rate, regular rhythm, S1 normal heart sound and S2 normal heart sound GI Common normals: Normal to inspection, nondistended, normoactive bowel sounds present, soft to palpation and non-tender Extremity Common normals: normal to inspection and full ROM Neuro Common normals: oriented x3, CN's II-XII intact bilaterally, moves all extremities and no focal motor deficits Psych Appearance: grossly normal Course Vital Signs Vital signs: Vital Signs Temperature 98.3 F 10/03/24 22:29 Pulse Rate 88 10/03/24 22:29 Respiratory Rate 14 10/03/24 22:29 Blood Pressure 130/89 10/03/24 22:29 Pulse Oximetry 100 10/03/24 22:29 Oxygen Delivery Method Room Air 10/03/24 22:29 Temperature 98.3 F 10/03/24 22:29 Pulse Rate 88 10/03/24 22:29 Respiratory Rate 14 10/03/24 22:29 Blood Pressure 130/89 10/03/24 22:29 Pulse Oximetry 100 10/03/24 22:29 Oxygen Delivery Method Room Air 10/03/24 22:29 Medical Decision Making MDM Narrative Medical decision making narrative: patient presents with complaint of sensation of heart racing, chest tightness and nausea after eating. Past history of GERD but no longer taking PPI. Exam neg. EKG ST depression precordial leads. Patient given GI cocktail that took away chest sensation. Lab neg including troponin, d-dimer and BNP. Normal cxray. Patient informed symptoms likely related to GERD and offered prilosec prior to discharged. She did not want any further medication at this time as she did not like the way the GI cocktail made her feel. Will follow up with her doctor for recheck clinically low suspicion for cardiac chest discomfort. Heart score 1 Lab Data Labs: Lab Results 10/03/24 Range/Units 23:20 WBC 7.9 (4.0-11.0) 10^3/uL RBC 4.14 L (4.20-5.40) 10^6/uL Hgb 12.9 (12.0-16.0) g/dL Hct 36.8 (36.0-48.0) % MCV 88.9 (81.0-99.0) fL MCH 31.2 (26.7-34.0) pg MCHC 35.1 (29.9-35.2) g/dL RDW 12.3 (11.0-15.0) % Plt Count 225 (150-450) 10^3/uL MPV 10.6 (9.5-13.5) fL Neut % (Auto) 49.0 (43.0-75.0) % Lymph % (Auto) 38.2 (20.5-60.0) % Piatt % (Auto) 8.3 (1.7-12.0) % Eos % (Auto) 3.9 (0.9-7.0) % Baso % (Auto) 0.5 (0.2-2.0) % Neut # (Auto) 3.9 (1.4-6.5) 10^3/uL Lymph # (Auto) 3.0 (1.2-3.8) 10^3/uL Piatt # (Auto) 0.7 (0.3-0.8) 10^3/uL Eos # (Auto) 0.3 (0.0-0.7) 10^3/uL Baso # (Auto) 0.0 (0.0-0.1) 10^3/uL Abs Immat Gran (auto) 0.01 (0.00-0.03) 10^3/uL Imm/Tot Granulo (auto) 0.1 (0.0-0.5) % D-Dimer <0.19 (<=0.59) mg/L FEU Sodium 143 (136-145) mmol/L Potassium 3.5 (3.5-5.1) mmol/L Chloride 105 (98-107) mmol/L Carbon Dioxide 30.1 (21.0-32.0) mmol/L Anion Gap 11.4 BUN 13.0 (7.0-18.0) mg/dL Creatinine 0.85 (0.55-1.02) mg/dL Est GFR ( Amer) >60 (>=60 mL/min/1.73m^2) Est GFR (Non-Af Amer) >60 (>=60 mL/min/1.73m^2) BUN/Creatinine Ratio 15.3 Glucose 96 (74-106) mg/dL Calcium 9.6 (8.5-10.1) mg/dL Troponin I High Sens 4.3 (4.0-51.3) pg/mL NT-Pro-B Natriuret Pep 39.0 (<=450.0) pg/mL Discharge Plan Discharge Chief Complaint: Chest Pain Clinical Impression: Atypical chest pain Patient Disposition: Home, Self-Care Prescriptions / Home Meds: No Action No Known Home Medications Print Language: [place] Island[place] Instructions: Noncardiac Chest Pain (ED) Referrals: Haley Butcher NP [Primary Care Provider] - 1 week Discharge Date/Time: 10/04/24 00:45
--- NOTE | 2024-10-03 22:58 | XR_ITS ---
[place] [id number] Patient Name: JAYNE HUMPHRIES MRN: [id number] date: 2005 Sex: F Assigned Patient Location: ER Current Patient Location: ER Accession/Order Number: [id number] Exam Date: 10/03/2024 23:48 Report Date: 10/03/2024 23:49 At the request of: SOPHIA CARLISLE MD Procedure: XR chest 2V Plain film chest 2 view HISTORY: Chest pain COMPARISON: None FINDINGS: SUPPORT DEVICES: None POSTSURGICAL CHANGES: None HEART: Within normal limits PULMONARY ANDREW: Within normal limits MEDIASTINUM: Unremarkable LUNGS AND PLEURA: No acute lung process, pleural effusion or pneumothorax identified. BONY STRUCTURES: Intact ADDITIONAL FINDINGS None XR/XR chest 2V IMPRESSION: No acute process. Impression dictated by: Jayesh Bryant M.D. 10/03/2024 11:49 PM Dictation Location: [place] [address] Electronically authenticated by: [id number] Y Date: 10/03/2024 23:49
--- NOTE | 2024-10-03 22:59 | ECG_ITS ---
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 Measurements Intervals [place] Rate: 94 P: -46 [place]: 158 QRS: -45 QRSD: 90 T: -4 QT: 340 QTc: 392 Interpretive Statements 1220 Rapid atrial rhythm [address] depression [place] abnormality, possible inferolateral ischemia 7200 Abnormal left axis deviation 9150 abnormal ECG No previous ECG available for comparison Electronically Signed On 10-04-2024 8:22:54 EDT by GENTRY LEMUS M.D.
[2024-10-03] MEDS: lidocaine HCL 15 ML, MAG HYDROX/ALUMINUM HYD/SIMETH 30 ML, HYOSCYAMINE SULFATE 0.25 MG PO (23:14)
[2024-10-03 23:31] LABS: Hematocrit 36.8 % (36.0-48.0); Hemoglobin 12.9 g/dL (12.0-16.0); Immature Granulocytes Abs Auto 0.01 10^3/uL (0.00-0.03); Immature Granulocytes Pct Auto 0.1 % (0.0-0.5); Lymphocytes Absolute Auto 3.0 10^3/uL (1.2-3.8); Mean Corpuscular HGB Conc 35.1 g/dL (29.9-35.2); Mean Corpuscular Hemoglobin 31.2 pg (26.7-34.0); Mean Corpuscular Volume 88.9 fL (81.0-99.0); Platelet Count 225 10^3/uL (150-450); Red Blood Count 4.14 10^6/uL (4.20-5.40); White Blood Count 7.9 10^3/uL (4.0-11.0)
[2024-10-03 23:59] LABS: Anion Gap 11.4; Blood Urea Nitrogen 13.0 mg/dL (7.0-18.0); Calcium 9.6 mg/dL (8.5-10.1); Carbon Dioxide 30.1 mmol/L (21.0-32.0); Chloride 105 mmol/L (98-107); Estimated GFR (African America >60 (>=60 mL/min/1.73m^2); Estimated GFR (Non-African Ame >60 (>=60 mL/min/1.73m^2); Glucose 96 mg/dL (74-106); NT Pro B Type Natriuretic Pept 39.0 pg/mL (<=450.0); Potassium 3.5 mmol/L (3.5-5.1); Sodium 143 mmol/L (136-145)
[2024-10-04] VITALS: PULSE 72
[2024-10-04 00:10] VITALS: PULSE 74
[2024-10-04 00:20] VITALS: PULSE 77
[2024-10-04 00:30] VITALS: PULSE 88
[2024-10-04 00:40] VITALS: PULSE 75
== END 2024-10-04 00:45 | disposition home or self-care (01) ==
PROVIDERS: Emergency Provider Internal Medicine; PCP Nurse Practitioner Family
DX: R07.89 Other chest pain (principal)
CPT/HCPCS: 36415; 71046; 80048; 83880; 84484; 85025; 85378; 93005; 99284